=== PATIENT | female | born 1980 | race Caucasian/White ===

== ENCOUNTER → 2018-06-05 | Outpatient (CLI) | payer BC ==
--- NOTE | 2018-06-05 14:01 | US ---
EXAMINATION TYPE: US thyroid st tissue head/neck DATE OF EXAM: 06/05/2018 COMPARISON: NONE CLINICAL HISTORY: E06.3 Chronic lymphocytic thyroiditis; raspy voice; dizziness GLAND SIZE: Right Lobe: 4.4 x 2.1 x 1.7 cm Overall Parenchyma: homogenous Left Lobe: 4.5 x 2.1 x 1.4 cm Overall Parenchyma: homogeneous Isthmus Thickness: 0.1 cm NODULES RIGHT: # of nodules measured on right: 0 LEFT: # of nodules measured on left: 0 ISTHMUS: # of nodules measured in the isthmus: 0 Bilateral neck scanned: multiple lymph nodes seen superior to right thyroid with largest = 1.7 x 0.9 x 0.7cm and couple of lymph nodes seen superior to left thyroid with larger node = 2.4 x 1.8 x 0.8cm . IMPRESSION: There are multiple lymph nodes in the soft tissues of the neck. Short axis of the lymph nodes measure s below 1 cm compatible with shotty lymphadenopathy. No pathologic lymph nodes identified.
[2018-06-05 15:48] LABS: ALT 22 U/L (9-52); AST 23 U/L (14-36); Albumin 4.4 g/dL (3.5-5.0); Alkaline Phosphatase 30 U/L (38-126); Anion Gap 12 mmol/L; Blood Urea Nitrogen 18 mg/dL (7-17); Calcium 10.1 mg/dL (8.4-10.2); Carbon Dioxide 23 mmol/L (22-30); Chloride 106 mmol/L (98-107); Glucose 84 mg/dL (74-99); Potassium 4.6 mmol/L (3.5-5.1); Sodium 141 mmol/L (137-145); Total Bilirubin 0.5 mg/dL (0.2-1.3); Total Protein 7.5 g/dL (6.3-8.2)
[2018-06-05 16:04] LABS: HCT 44.1 % (34.0-46.0); HGB 14.3 gm/dL (11.4-16.0); MCH 29.5 pg (25.0-35.0); MCHC 32.5 g/dL (31.0-37.0); MCV 90.7 fL (80.0-100.0); Mean Platelet Volume 7.3; Platelet Count 271 k/uL (150-450); RBC 4.86 m/uL (3.80-5.40); RDW 13.2 % (11.5-15.5); WBC 9.5 k/uL (3.8-10.6)
== END | disposition home or self-care (01) ==
LOC: RADUSWWP 13:01
PROVIDERS: ATTEND Internal Medicine
DX: R22.1 Localized swelling, mass and lump, neck (principal); E06.3 Autoimmune thyroiditis; R42 Dizziness and giddiness
CPT/HCPCS: 76536; 80053; 82607; 83540; 85027

== ENCOUNTER → 2018-07-29 | Outpatient (CLI) | payer BC ==
--- NOTE | 2018-07-29 18:46 | XR ---
EXAMINATION TYPE: XR chest 2V DATE OF EXAM: 07/29/2018 COMPARISON: NONE TECHNIQUE: PA and lateral views submitted. HISTORY: Cough FINDINGS: The lungs are clear and there is no pneumothorax, pleural effusion, or focal pneumonia. No overt fa ilure. There is hyperinflation. IMPRESSION: 1. No acute process. Hyperinflation noted. Correlate for asthma or COPD.
== END ==
LOC: RADXRMAIN 15:30
PROVIDERS: ATTEND Family Medicine
DX: Z09 Encounter for follow-up examination after completed treatment for conditions other than malignant neoplasm (principal); Z87.891 Personal history of nicotine dependence
CPT/HCPCS: 71046